=== PATIENT | female | born 1975 | race Caucasian/White ===

== ENCOUNTER → 2017-08-27 | Emergency (ER) | payer OTHER ==
[2017-08-27 18:03] VITALS: BP 148/91; PULSE 116; TEMP 100.1; BMI 32.8
--- NOTE | 2017-08-27 18:03 | PDOC ---
Rapid Medical Evaluation Time Seen by Provider: 08/27/17 17:58 Medical Evaluation: Allergies Allergy/AdvReac Type Severity Reaction Status Date / Time No Known Allergies Allergy Verified 08/27/17 17:58 08/27/17 17:59 Pt presents to the ED: abd pain x 5 days, generalized body pain, took advil at 1pm, + nausea Pt on brief exam: fever 100.1, no RUQ tenderness, no cva tendernesss Pt ordered for : ua, upreg, influenza Pt to proceed to the ED Discharge Disposition - Diagnosis Upper abdominal pain - Referrals - Patient Instructions - Post Discharge Activity
== END | disposition left against medical advice (07) ==
LOC: JER 17:48
DX: R10.13 Epigastric pain (principal)
CPT/HCPCS: 87804; 99281-25